=== PATIENT | male | born 1990 | race Caucasian/White ===

== ENCOUNTER 2023-10-03 20:01 | Emergency (ER) | payer OTHER ==
[2023-10-03 21:11] LABS: #Monocytes 0.4 10x3/uL (0.0-1.1); #Neutrophils 7.6 10x3/uL (1.5-8.4); %Basophils 0.2 % (0.0-2.0); %Eosinophils 0.3 % (0.0-6.0); %Monocytes 3.9 % (0.0-10.0); %Neutrophils 85.4 % (40.0-75.0); Hematocrit 55.3 % (38.8-50.0); Hemoglobin 20.2 g/dL (13.5-17.5); Mean Corpuscular HGB CONC 36.5 g/dL (32.0-36.0); Mean Corpuscular Hemoglobin 34.6 pg (27.0-33.0); Mean Corpuscular Volume 94.7 fl (81.2-95.1); Platelet Count 202 10x3/uL (150-450); RBC Distribution Width 14.5 % (11.5-14.5); Red Blood Cell (RBC) Count 5.84 10x6/uL (4.32-5.72); White Blood Cell (WBC) Count 8.9 10x3/uL (3.5-10.5)
[2023-10-03] MEDS ORDERED: Ondansetron PF 4 MG/2 ML Vial ONE (21:13)
[2023-10-03] MEDS ORDERED: Dicyclomine 20 MG TAB ONE (21:15)
[2023-10-03 21:19] LABS: ALT (SGPT) 28 U/L (8-55); AST (SGOT) 34 U/L (5-34); Albumin 4.4 g/dL (3.5-5.0); Alkaline Phosphatase 71 U/L (40-110); Anion Gap 19 mmol/L (10-20); BUN (Urea Nitrogen) 14 mg/dL (8.9-20.6); Bilirubin, Total 0.8 mg/dL (0.2-1.2); Calc. Creatinine Clearance 0 mL/min (70-130); Calcium 9.6 mg/dL (7.8-10.44); Carbon Dioxide 23 mmol/L (22-29); Chloride 96 mmol/L (98-107); Estimated GFR 79; Globulin 4.3 g/dL (2.4-3.5); Glucose 111 mg/dL (70-105); Lipase 9 U/L (8-78); Potassium 3.1 mmol/L (3.5-5.1); Protein, Total 8.7 g/dL (6.0-8.3); Sodium 135 mmol/L (136-145)
[2023-10-03] MEDS ORDERED: Aspirin Chewable 81 MG TAB ONE (22:04)
[2023-10-03] MEDS ORDERED: Potassium Chloride 20 MEQ/100 ML PREMIX BAG ONE (22:04)
== END 2023-10-04 00:29 | disposition home or self-care (01) ==
LOC: CSHERS 20:01
DX: R19.7 Diarrhea, unspecified (principal); R11.2 Nausea with vomiting, unspecified; R71.8 Other abnormality of red blood cells; R10.9 Unspecified abdominal pain
CPT/HCPCS: 80053; 83690; 85025; 96361; 96365; 96366; 96375; J2405; J3480

== ENCOUNTER 2024-03-29 13:59 | Emergency (ER) | payer OTHER ==
[2024-03-29 15:21] LABS: Influenza A by NAA Not Detected (NotDetected); Influenza B by NAA Not Detected (NotDetected); SARS-CoV-2 NAA Rapid Test DETECTED (NotDetected)
== END 2024-03-29 15:56 | disposition home or self-care (01) ==
LOC: CSHERS 13:59
DX: U07.1 COVID-19 (principal)
CPT/HCPCS: 99283